=== PATIENT | female | born 1940 | race Caucasian/White ===

== ENCOUNTER 2020-07-28 02:36 | Inpatient (IN) | payer MEDICARE ==
[~2020-07-28] VITALS: Ht 152.4 cm; Wt 48.1 kg
[2020-07-28] MEDS ORDERED: BLOOD SUGAR DIAGNOSTIC 1 EACH STRIP IN ONE (04:30)
[2020-07-28] MEDS ORDERED: ACETAMINOPHEN 325 MG TABLET PO PRN (04:30)
[2020-07-28] MEDS ORDERED: MAGNESIUM HYDROXIDE 30 ML UDC PO PRN (04:30)
[2020-07-28] MEDS ORDERED: MAG HYDROX/AL HYDROX/SIMETH 30 ML UDC PO PRN (04:30)
[2020-07-28] MEDS ORDERED: LORAZEPAM 0.5 MG TABLET PO PRN (04:30)
[2020-07-28 05:09] VITALS: BP 152/93
--- NOTE | 2020-07-28 06:15 | NUR ---
GPS RN ADMITTING NOTE: ADMITTED AN 79 Y/O FEMALE TO THIS UNIT ON 07/28/20 @ 0400. PT IS ON 5150 HOLD FOR GRAVELY DISABLED. HOLD WAS PLACED ON 07/27/2020 @ 1214. PER HOLD, PT CALLED 911 BECAUSE PT IS UNWILLING TO PARTICIPATE IN SELF CARE, DISORGANIZED, PARANOID, HAS BEEN TALKING TO HERSELF, HAS NOT EATEN FOR THEE DAYS, HAS NOT BEEN DRINKING ANY FLUID AND IS UNABLE TO STATE A PLAN FOR HER OWN SAFETY. UPON FACE TO FACE EVALUATION PT PRESENTS A/O X1-2, HYPERVERBAL, PARANOID, RESTLESS, TALKATIVE, FLAT AFFECT, DISHEVELED, UNKEPT, DISORGANIZED AND DISORIENTED. SKIN ASSESSMENT DONE AND PICTURES PLACED IN CHART, MRSA BOTH NARES DONE. PT BELONGINGS INVENTORIED AND CONTRABAND PLACED IN PHARMACY BOX. PT REFUSED TO SIGN ADMISSION PAPERS. PT DENIES SI, AT THIS TIME. PT MEDICAL HX INCLUDE LEFT EYE BLINDNESS, CORNEAL TRANSPLANT, HTN, HYPERLIPIDEMIA, GLAUCOMA, AND CHRONIC PAIN DISORDER. PT WILL BE UNDER THE MEDICAL CARE OF DR. FIGUEROA AND PSYCHIATRIC CARE OF DR. TRIPLETT. PT ADVISED OF HER HOLD. PTS RIGHTS HANDBOOK GIVEN TO PT. BED IS IN LOCKED, LOWEST POSITION, BED ALARM ON. CARE PLAN STARTED, ALL PT CARE NEEDS MET AT THIS TIME. WILL CONTINUE TO MONITOR Q15MIN AND Q1 HR FOR SAFETY MOOD AND BEHAVIOR AND ENDORSE TO AM SHIFT.
[2020-07-28] MEDS ORDERED: BRIM5DRO11 OP (07:01)
[2020-07-28] MEDS ORDERED: NICO-676 TP (07:01)
[2020-07-28] MEDS ORDERED: LORA-259 PO (07:01)
[2020-07-28] MEDS ORDERED: OLAN5TAB3 PO (07:01)
[2020-07-28] MEDS ORDERED: PRED5DRO4 LEFTEYE (07:01)
[2020-07-28] MEDS ORDERED: IBUP-1953 PO (07:01)
[2020-07-28] MEDS ORDERED: IBUP-1957 PO (07:01)
[2020-07-28] MEDS ORDERED: MOXI3DRO EACHEYE (07:01)
[2020-07-28] MEDS ORDERED: MELA3TAB41 PO (07:01)
[2020-07-28 08:00] VITALS: BP 153/97
--- NOTE | 2020-07-28 11:00 | NUR ---
RN-CO: DR Jim VILLARREAL NOTIFIED TO RECONCILE HOME MEDICATIONS.
[2020-07-28] MEDS: LORAZEPAM 1 MG TABLET PO PRN (11:14)
[2020-07-28] MEDS ORDERED: BRIM5DRO EACHEYE (13:56)
[2020-07-28] MEDS ORDERED: IBUPROFEN 400 MG TABLET PO PRN (14:00)
[2020-07-28 16:00] VITALS: BP 133/88
[2020-07-28] MEDS ORDERED: COMBIGAN EYE LEFTEYE SCH (17:00)
[2020-07-28] MEDS ORDERED: MOXIFLOXACIN OPTH 3 ML BOTTLE EACHEYE SCH (17:00)
[2020-07-28] MEDS: prednisoLONE ACET 1% OPHT DROP 5 ML BOTTLE LEFTEYE SCH ×2 (17:24→20:13)
[2020-07-28] MEDS: MOXIFLOXACIN OPTH 3 ML BOTTLE LEFTEYE SCH ×2 (17:25→20:12)
[2020-07-28 21:00] VITALS: BP 159/89
[2020-07-28] MEDS: risperiDONE 0.25 MG TABLET PO SCH (22:48)
--- NOTE | 2020-07-29 05:09 | NUR ---
GPS RN NOTE: ALLERGIC REACTION & D/C MEDICATION AT 0445 PT WOKE UP AND I NOTICED SHE WAS HAVING AN ALLERGIC REACTION OF BOTH EYES. BOTH EYES WERE SWOLLEN, IRRITATED AND RED. PT C/O OF SHOULDER AND BACK PAIN WELL. INFORMED PODIATRIST ASSISTANT DR. FIGUEROA, @0503 DR ORDERED 25MG ORAL BENADRYL ONCE, AND TO STOP THE EYE DROP MEDICATION AND TO PASS IT ON TO UPCOMING SHIFT SO THAT THE PT CAN BE SEEN MY MEDICAL DR. WILL ADMIN MEDICATION, PASS IT ON TO MORNING SHIFT AND CONTINUE TO MONITOR Q15MIN FOR SAFETY AND BEHAVIOR
--- NOTE | 2020-07-29 05:19 | NUR ---
GPS RN NOTE: ALLERGIC REACTION PT HAD AN ALLERGIC REACTION IN BOTH EYES, SWOLLEN, IRRITATED, PT C/O OF PAIN REFUSED ANY PAIN MED BUT TOOK THE BENADRYL THE DR ORDERED AT 0518. WILL REASSESS AND CONTINUE TO MONITOR Q15MIN FOR SAFETY AND BEHAVIOR.
[2020-07-29] MEDS ORDERED: diphenhydrAMINE HCL ELIX 25 MG/10 ML UDC PO ONE (05:30)
--- NOTE | 2020-07-29 06:18 | NUR ---
GPS RN NOTE: ALLERGIC REACTION BENADRYL THAT WAS GIVEN AT @0518 HELPED RESOLVE THE ALLERGIC REACTION THE PT WAS HAVING, SWELLING, REDNESS AND PAIN WENT DOWN. WILL PASS IT ON TO MORNING SHIFT AND CONTINUE TO MONITOR Q15MIN FOR SAFETY AND BEHAVIOR.
[2020-07-29 08:00] VITALS: BP 144/78
[2020-07-29] MEDS: NICOTINE PATCH (14MG) 14 MG PATCH.TD24 TD SCH ×2 (08:42→08:46)
--- NOTE | 2020-07-29 08:46 | NUR ---
gps composite technician: notes pt refused nicotine patch, stated, "i don't smoke, i am not a smoker."
[2020-07-29 09:18] LABS: ALBUMIN 3.4 g/dL (3.4-5.0); BILIRUBIN,TOTAL 0.4 mg/dL (0.2-1.0); CALCIUM, SERUM 9.1 mg/dL (8.5-10.1); POTASSIUM 3.1 mmol/L (3.5-5.1); TOTAL PROTEIN, SERUM 6.7 g/dL (6.4-8.2)
[2020-07-29] MEDS: risperiDONE 0.25 MG TABLET PO SCH ×2 (10:24→22:14)
[2020-07-29] MEDS ORDERED: MOXIFLOXACIN OPTH 3 ML BOTTLE LEFTEYE SCH (10:30)
[2020-07-29] MEDS ORDERED: BRIMONIDINE TARTRATE OPHT SOLN 5 ML BOTTLE LEFTEYE SCH (11:00)
[2020-07-29] MEDS ORDERED: POTASSIUM CHLORIDE 20 MEQ POWDER PACKET PO ONE (11:00)
[2020-07-29] MEDS: MOXIFLOXACIN OPTH 3 ML BOTTLE LEFTEYE SCH ×3 (11:49→21:02)
[2020-07-29] MEDS: COMBIGAN EYE LEFTEYE SCH ×2 (11:49→16:17)
[2020-07-29] MEDS: prednisoLONE ACET 1% OPHT DROP 5 ML BOTTLE LEFTEYE SCH ×2 (11:55→16:19)
--- NOTE | 2020-07-29 12:40 | NUR ---
gps course instructor: notes report given to zuri (rn) for continuity of care. pt for discharge to [facility]. covid result is pending.
[2020-07-29] MEDS ORDERED: prednisoLONE ACET 1% OPHT DROP 5 ML BOTTLE LEFTEYE SCH (13:00)
[2020-07-29 16:00] VITALS: BP 120/71
[2020-07-29 20:06] VITALS: BP 130/90
[2020-07-29 22:15] VITALS: BP 128/82
[2020-07-30] MEDS: TEMAZEPAM 15 MG CAPSULE PO PRN (00:17)
--- NOTE | 2020-07-30 00:23 | NUR ---
RN NOTES : INSOMNIA PT. C/O UNABLE TO SLEEP , RESTORIL 15 MG PO PRN GIVEN , WILL CONTINUE TO MONITOR.
--- NOTE | 2020-07-30 06:48 | NUR ---
GPS RN NOTES: PT. RESTING IN HER ROOM, CALM NOTED AT THIS TIME . NO S/S OF DISTRESS NOTED . NO CHANGE OF CONDITION NOTED, ALL CARE NEEDS MET ANTICIPATED. WILL CONTINUE TO MONITOR FOR SAFETY BEHAVIOR, AND ENDORSE TO AM SHIFT FOR CONTINUITY OF CARE.
[2020-07-30 08:00] VITALS: BP 114/71
[2020-07-30] MEDS: MOXIFLOXACIN OPTH 3 ML BOTTLE LEFTEYE SCH ×4 (08:46→20:21)
[2020-07-30] MEDS: prednisoLONE ACET 1% OPHT DROP 5 ML BOTTLE LEFTEYE SCH ×2 (08:46→16:10)
[2020-07-30] MEDS: COMBIGAN EYE LEFTEYE SCH ×2 (08:47→16:10)
[2020-07-30] MEDS: NICOTINE PATCH (14MG) 14 MG PATCH.TD24 TD SCH (08:47)
[2020-07-30] MEDS: risperiDONE 0.25 MG TABLET PO SCH ×2 (10:23→21:20)
--- NOTE | 2020-07-30 10:27 | NUR ---
FAMILY CONTACT: NEERU contacted pts Jim ([phone]) to discuss collateral information , discharge and treatment planning. NEERU informed that pt remains paranoid, delusional, disorganized, and is refusing to shower and groom herself. became defensive and stated that he had just spoken with pt and she sounded, "fine and put together." denies previous psychiatric history or symptoms and states that pt has never displayed any symptoms of psychosis. did mention that last month pt began acting more "eccentric" than usual and stated that she began talking to herself and acting paranoid and disorganized. states that he tried calling the police for a psychiatric evaluation then hung up after pt yelled at him not to call. stated that it was too late and the police showed up and placed pt on a hold due to her acting bizarre. stated that he is a physician and that he has psychiatric training and states that he wishes for pt to be discharged soon as he is going on a trip next . requested to speak to MD regarding pts discharge date. Addendum: 07/30/20 at 1039 by GUSTAVO SIDDIQI wishes for pt to return home once stable.
--- NOTE | 2020-07-30 11:19 | NUR ---
INITIAL DISCHARGE PLAN: Per Jim ([phone]) he wishes for pt to return home [address] [place] [address] once stable for discharge. NEERU will help from a safe and proper discharge in collaboration with .
[2020-07-30 16:00] VITALS: BP 139/77
[2020-07-31] MEDS: LORAZEPAM 1 MG TABLET PO PRN (04:50)
--- NOTE | 2020-07-31 04:52 | NUR ---
RN NOTES: ANXIETY PT.NOTED VERY ANXIOUS , RESTLESS PARANOID ,GUARDED , NOT FOLLOWING ANY REDIRECTION ATIVAN 1 MG PO PRN GIVEN , WILL CONTINUE TO MONITOR.
[2020-07-31 08:00] VITALS: BP 129/74
[2020-07-31] MEDS: COMBIGAN EYE LEFTEYE SCH ×2 (09:03→16:29)
[2020-07-31] MEDS: NICOTINE PATCH (14MG) 14 MG PATCH.TD24 TD SCH (09:04)
[2020-07-31] MEDS: MOXIFLOXACIN OPTH 3 ML BOTTLE LEFTEYE SCH ×4 (09:04→21:14)
[2020-07-31] MEDS: risperiDONE 0.25 MG TABLET PO SCH ×2 (09:04→21:14)
[2020-07-31] MEDS: prednisoLONE ACET 1% OPHT DROP 5 ML BOTTLE LEFTEYE SCH ×2 (09:04→16:18)
[2020-07-31 16:00] VITALS: BP 159/81
--- NOTE | 2020-07-31 19:39 | NUR ---
GPS RN NOTES RECEIVED PATIENT IN ROOM AWAKE, ALERT AND ORIENTED X 2. CONFUSED. BREATHING EVEN AND UNLABORED ON ROOM AIR. SHOWS NO SIGNS OF ACUTE RESPIRATORY DISTRESS, NO ACUTE PAIN. PT IS COMPLIANT WITH MEDICATIONS. DENIES SI AND HI. SAFETY PRECAUTIONS IN PLACE. BED IN LOWEST POSITION, LOCKED, AND WILL CONTINUE TO MONITOR.
[2020-07-31 20:26] VITALS: BP 127/79
[2020-07-31] MEDS: TEMAZEPAM 15 MG CAPSULE PO PRN (22:26)
[2020-07-31] MEDS: risperiDONE 1 MG TABLET PO SCH (23:05)
--- NOTE | 2020-08-01 06:30 | NUR ---
GPS RN NOTES: PT. RESTING IN HER ROOM, CALM NOTED AT THIS TIME . NO S/S OF DISTRESS NOTED ,NO CHANGE OF CONDITION NOTED ,AND NO BEHAVIOR PROBLEMS NOTED, PT. NEEDS FREQUENTLY REDIRECTIONS ,ALL CARE NEEDS MET ANTICIPATED. WILL CONTINUE TO MONITOR FOR SAFETY BEHAVIOR, AND ENDORSE TO AM SHIFT FOR CONTINUITY OF CARE.
--- NOTE | 2020-08-01 07:41 | NUR ---
GPS RN NOTE RECEIVED PATIENT IN BED RESTING COMFORTABLY. PATIENT IN NO ACUTE DISTRESS. NO SOB NOTED. PATIENT BREATHING IS EVEN AND UNLABORED. PATIENT IS CALM AND COOPERATIVE AT THIS TIME. DENIES SI AND HI. SAFETY PRECAUTIONS IN PLACE. PATIENT BED IS LOCKED AND IN LOWEST POSITION. BED ALARM IS ON. WILL CONTINUE TO MONITOR.
[2020-08-01 08:14] VITALS: BP 147/90
[2020-08-01] MEDS: prednisoLONE ACET 1% OPHT DROP 5 ML BOTTLE LEFTEYE SCH ×2 (08:55→16:09)
[2020-08-01] MEDS: MOXIFLOXACIN OPTH 3 ML BOTTLE LEFTEYE SCH ×4 (08:56→21:14)
[2020-08-01] MEDS: COMBIGAN EYE LEFTEYE SCH ×2 (08:58→16:09)
[2020-08-01] MEDS: NICOTINE PATCH (14MG) 14 MG PATCH.TD24 TD SCH (09:00)
--- NOTE | 2020-08-01 09:05 | NUR ---
GPS RN NOTE PATIENT REFUSED NICOTINE PATCH THIS AM. EDUCATED RISKS VS BENEFITS 3X. PATIENT CONTINUED TO REFUSE.
[2020-08-01] MEDS: risperiDONE 1 MG TABLET PO SCH ×2 (11:32→22:56)
--- NOTE | 2020-08-01 14:08 | NUR ---
FAMILY CONTACT: NEERU received a call from pts Jim ([phone]) wanting to discuss pts discharge date. states that he has an important business trip next week and needs pt discharged by Wednesday. SW informed him that as of today pt continues to meet criteria for acute psychiatric hospitalization and informed him that pts antipsychotic was increased yesterday as pt continues to be paranoid, guarded, and evasive with disorganized thoughts. states that he feels pt has returned to her baseline. also stated that he is concerned about the antipsychotic as he read there are significant side effects. SW informed him to discuss any medication concerns with MD. NEERU transferred the call to the nurses station to leave a benny for MD for callback.
[2020-08-01] MEDS: ENSURE ENLIVE 237 ML LIQUID (VANILLA) PO SCH ×2 (14:30→16:09)
[2020-08-01 16:00] VITALS: BP 154/95
--- NOTE | 2020-08-01 18:45 | NUR ---
GPS RN NOTE PATIENT IN BED RESTING COMFORTABLY. PATIENT IN NO ACUTE DISTRESS. NO SOB NOTED. PATIENT BREATHING IS EVEN AND UNLABORED. PATIENT IS CALM AND COOPERATIVE AT THIS TIME. PATIENT NEEDING FREQUENT REDIRECTION. SAFETY PRECAUTIONS IN PLACE. EXPLAINED ALL DUE MEDS. PATIENT KEPT CLEAN, DRY, AND COMFORTABLE THROUGHOUT SHIFT. PATIENT BED IS LOCKED AND IN LOWEST POSITION. BED ALARM IS ON. WILL ENDORSE CARE TO PM SHIFT FOR KRISTIAN.
--- NOTE | 2020-08-01 19:30 | NUR ---
GPS RN NOTE, RECEIVED PATIENT AWAKE AND IN BED, NO S/S OR COMPLAINTS OF PAIN AT THIS TIME. PATIENT IS DISPLAYING NO S/S OF APPARENT DISTRESS AT THIS TIME. PATIENT BREATHING IS UNLABORED WITH EQUAL RISE AND FALL OF THE CHEST. PATIENT IS ALERT AND ORIENTED X 2 ON ROOM AIR WITH A SPO2 96%. PATIENT IS COMPLAINT WITH MEDICATIONS, CONFUSED AT TIMES, HYPERVERBAL, ISOLATIVE, AND COOPERATIVE. PATIENT DENIES SUICIDAL AND HOMICIDAL IDEATIONS AT THIS TIME. PATIENT ASSISTED WITH TURNING AND REPOSITIONING Q2HR AND PRN FOR COMFORT AND CIRCULATION. PATIENT HAS NO NEEDS AT THIS TIME. PATIENT EDUCATED ON THE USE OF THE CALL LEÓN. PATIENT BED SIDE RAILS UP X 2 FOR SAFETY. PATIENT BED IS LOCKED, LOW, WITH BED ALARM ON. WILL CONTINUE TO MONITOR THIS PATIENT Q15 MINUTES WITH THE HELP OF STAFF TO MAINTAIN SAFETY.
[2020-08-01 20:14] VITALS: BP 118/90
--- NOTE | 2020-08-01 22:55 | NUR ---
GPS RN NOTE, PATIENT REFUSED RISPERDAL 0.5MG PO Q12HR. OFFERED RISPERDAL THREE TIMES BUT PATIENT REFUSED STATING," I DON'T KNOW WHAT THAT IS I WON'T TAKE IT ". EDUCATED PATIENT ON THE RISKS AND BENEFITS OF TAKING AND REUSING RISPERDAL. WILL CONTINUE TO MONITOR THIS PATIENT.
[2020-08-02 08:00] VITALS: BP 100/67
[2020-08-02] MEDS: NICOTINE PATCH (14MG) 14 MG PATCH.TD24 TD SCH (09:00)
[2020-08-02] MEDS: ENSURE ENLIVE 237 ML LIQUID (VANILLA) PO SCH ×2 (09:04→17:44)
[2020-08-02] MEDS: prednisoLONE ACET 1% OPHT DROP 5 ML BOTTLE LEFTEYE SCH ×2 (09:05→17:45)
[2020-08-02] MEDS: COMBIGAN EYE LEFTEYE SCH ×2 (09:06→17:45)
[2020-08-02] MEDS: MOXIFLOXACIN OPTH 3 ML BOTTLE LEFTEYE SCH ×4 (09:06→21:43)
--- NOTE | 2020-08-02 09:40 | NUR ---
PC HEARING NOTIFICATION: NEERU contacted pts Jim ([phone]) and left a voicemail informing him pt is scheduled for a Probable Cause Hearing on this day.
[2020-08-02] MEDS: risperiDONE 1 MG TABLET PO SCH ×2 (11:00→23:00)
--- NOTE | 2020-08-02 14:31 | NUR ---
FAMILY CONTACT: SW received a call from pts Jim ([phone]) wanting to discuss pts discharge date. states that he wishes for pt to be discharged on Wednesday. SW informed him that pts 14 day hold was upheld and informed him that currently pt is refusing to take her antipsychotic medication. SW explained that as of today pt is not stable for discharge and will most likely not be discharging by Wednesday. SW educated on pts course of treatment and stated that if pt continues to refuse medication the MD may file for a medication capacity hearing. understood and states he will see how pt does over the weekend.
[2020-08-02 16:00] VITALS: BP 152/95
[2020-08-02 19:37] VITALS: BP 139/99
--- NOTE | 2020-08-02 23:04 | NUR ---
GPS RN NOTE: MEDICATION REFUSAL PATIENT REFUSED RISPERDAL 0.5MG PO Q12HR. OFFERED RISPERDAL THREE TIMES BUT PATIENT REFUSED STATING," I DON'T KNOW WHAT THAT IS". EDUCATED PATIENT ON THE RISKS AND BENEFITS OF TAKING AND REUSING RISPERDAL. WILL CONTINUE TO MONITOR THIS PATIENT FOR SAFETY AND BEHAVIOR
--- NOTE | 2020-08-03 06:53 | NUR ---
GPS RN NOTE: CONSTIPATION PT. C/O OF CONSTIPATION. ADMINISTERED MOM 30 ML PRN ORDERED. WILL CONTINUE TO MONITOR FOR SAFETY AND BEHAVIOR.
[2020-08-03 08:00] VITALS: BP 133/76
[2020-08-03] MEDS: NICOTINE PATCH (14MG) 14 MG PATCH.TD24 TD SCH ×2 (08:18→08:25)
[2020-08-03] MEDS: ENSURE ENLIVE 237 ML LIQUID (VANILLA) PO SCH ×2 (08:19→16:28)
[2020-08-03] MEDS: prednisoLONE ACET 1% OPHT DROP 5 ML BOTTLE LEFTEYE SCH ×2 (08:19→10:36)
[2020-08-03] MEDS: MOXIFLOXACIN OPTH 3 ML BOTTLE LEFTEYE SCH ×4 (10:36→21:28)
[2020-08-03] MEDS: COMBIGAN EYE LEFTEYE SCH ×2 (10:37→16:28)
[2020-08-03] MEDS: risperiDONE 1 MG TABLET PO SCH ×2 (11:35→22:42)
[2020-08-03 16:36] VITALS: BP 136/60
[2020-08-03 20:15] VITALS: BP 159/82
[2020-08-03] MEDS: LORAZEPAM 1 MG TABLET PO PRN (20:47)
--- NOTE | 2020-08-03 20:47 | NUR ---
GPS RN NOTE, PATIENT HAS A COMPLAINT OF FEELING ANXIOUS AND IS REQUESTING ATIVAN AT THIS TIME. PATIENT VITAL SIGNS ARE STABLE. GAVE ATIVAN 1 MG PO Q6 PRN ORDERED. WILL REASSESS FOR ANXIETY AND I WILL CONTINUE TO MONITOR THIS PATIENT WITH THE HELP OF STAFF.
[2020-08-04 08:00] VITALS: BP 117/72
[2020-08-04] MEDS: ENSURE ENLIVE 237 ML LIQUID (VANILLA) PO SCH ×2 (08:49→16:59)
[2020-08-04] MEDS: NICOTINE PATCH (14MG) 14 MG PATCH.TD24 TD SCH (08:49)
[2020-08-04] MEDS: prednisoLONE ACET 1% OPHT DROP 5 ML BOTTLE LEFTEYE SCH ×2 (08:49→16:58)
[2020-08-04] MEDS: COMBIGAN EYE LEFTEYE SCH ×2 (08:50→16:58)
[2020-08-04] MEDS: MOXIFLOXACIN OPTH 3 ML BOTTLE LEFTEYE SCH ×4 (08:50→21:35)
[2020-08-04] MEDS: risperiDONE 1 MG TABLET PO SCH ×2 (12:34→23:00)
[2020-08-04] MEDS ORDERED: POLYVINYL ALCOHOL 15 ML BOTTLE LEFTEYE PRN (14:00)
[2020-08-04 16:00] VITALS: BP 156/91
[2020-08-04 19:50] VITALS: BP 141/74
[2020-08-04 20:29] VITALS: BP 141/74
--- NOTE | 2020-08-04 23:00 | NUR ---
GPN NURSE: refusing HS Risperdal 0.5mg , offered X2. I called Patients"s cell po. and asked him id he would bring another bottle of her left eye ATB GTTS. He stated he has no more the MD at the hospital will have to order and get from your pharmacy. Will endorse to the day shift to ask the MD when he makes rounds.
--- NOTE | 2020-08-05 05:04 | NUR ---
CLOSING NOTES: Slept 8 hours this night. She ambulates the corridor and steady on her feet. Left eye orbital area red and swollen. Noted the eye gtts MOXIFLOXACIN is empty called the on his cell po [phone] and he told me he is 100 miles away and that he has no more eye gttts for her and that I would need to get them from our pharmacy. She is calm and cooperative.
[2020-08-05 08:00] VITALS: BP 148/65
[2020-08-05] MEDS: NICOTINE PATCH (14MG) 14 MG PATCH.TD24 TD SCH (08:51)
[2020-08-05] MEDS: COMBIGAN EYE LEFTEYE SCH ×2 (09:00→17:00)
[2020-08-05] MEDS: MOXIFLOXACIN OPTH 3 ML BOTTLE LEFTEYE SCH ×3 (09:00→17:00)
[2020-08-05] MEDS: prednisoLONE ACET 1% OPHT DROP 5 ML BOTTLE LEFTEYE SCH ×2 (09:06→17:44)
[2020-08-05] MEDS: ENSURE ENLIVE 237 ML LIQUID (VANILLA) PO SCH ×2 (09:07→17:45)
[2020-08-05] MEDS: risperiDONE 1 MG TABLET PO SCH ×2 (11:16→22:56)
--- NOTE | 2020-08-05 15:54 | NUR ---
INDIVIDUAL INTERVENTION: SW met with pt at bedside to discuss her medication compliance. Pt states that she does not need medication and that she does not need to be here and wants to be discharged home. SW informed pt that she is not consistent with taking her medication and encouraged pt to take her medication everyday so that MD can discharge her once stable. Pt agreed and stated she will try to take her medication daily.
[2020-08-05 16:00] VITALS: BP 136/88
--- NOTE | 2020-08-05 16:51 | NUR ---
RN NOTE: PAIN PT C/O 4/10 HEADACHE. REQUESTING MOTRIN. MOTRIN 400MG PO PRN ADMINISTERED.
[2020-08-05] MEDS: TIMOLOL 0.5% SOLN OPHTH 5 ML BOTTLE LEFTEYE SCH (18:53)
[2020-08-05] MEDS: BRIMONIDINE TARTRATE OPHT SOLN 5 ML BOTTLE OP SCH (18:54)
[2020-08-05 19:42] VITALS: BP 152/89
[2020-08-05] MEDS: OFLOXACIN 0.3% OPHTH 5 ML BOTTLE LEFTEYE SCH (21:16)
--- NOTE | 2020-08-06 06:03 | NUR ---
GPS RN NOTES: PT. RESTING IN HER ROOM, CALM NOTED AT THIS TIME . NO S/S OF DISTRESS NOTED . PT. CALM COOPERTIVE,NO CHANGE OF CONDITION NOTED ,AND NO BEHAVIOR PROBLEMS NOTED, ALL CARE NEEDS MET ANTICIPATED. WILL CONTINUE TO MONITOR FOR SAFETY BEHAVIOR, AND ENDORSE TO AM SHIFT FOR CONTINUITY OF CARE.
[2020-08-06 08:00] VITALS: BP 143/92
[2020-08-06] MEDS: NICOTINE PATCH (14MG) 14 MG PATCH.TD24 TD SCH (08:35)
[2020-08-06] MEDS: ENSURE ENLIVE 237 ML LIQUID (VANILLA) PO SCH ×2 (08:35→16:53)
[2020-08-06] MEDS: TIMOLOL 0.5% SOLN OPHTH 5 ML BOTTLE LEFTEYE SCH ×2 (09:17→16:51)
[2020-08-06] MEDS: BRIMONIDINE TARTRATE OPHT SOLN 5 ML BOTTLE OP SCH ×2 (09:18→16:52)
[2020-08-06] MEDS: OFLOXACIN 0.3% OPHTH 5 ML BOTTLE LEFTEYE SCH ×4 (09:19→21:18)
[2020-08-06] MEDS: prednisoLONE ACET 1% OPHT DROP 5 ML BOTTLE LEFTEYE SCH ×2 (09:27→16:52)
[2020-08-06] MEDS: risperiDONE 1 MG TABLET PO SCH ×2 (10:27→23:09)
--- NOTE | 2020-08-06 10:28 | NUR ---
RN NOTE: PAIN PT C/O 01/15 HEADACHE. MEDICATED WITH TYLENOL 650MG PO PRN.
--- NOTE | 2020-08-06 10:45 | NUR ---
FAMILY CONTACT: SW contacted pts Jim ([phone]) to inform him pt will be discharged tomorrow Wednesday08/07/20. states he will pick pt up at 11:00am.
--- NOTE | 2020-08-06 10:52 | NUR ---
NEERU COORDINATION OF CARE: SW contacted [facility] [address] [place], [place] [address]io [address], [facility] [address] ([phone]) to schedule a follow up appointment. Pt has an appointment scheduled for 08/14/20 at 10:00am.
--- NOTE | 2020-08-06 10:58 | NUR ---
FAMILY CONTACT: SW contacted pts Jim ([phone]) to inform him pt has a mental health follow up appointment with [facility] [address] [place] [address] [address], [facility] [address] ([phone]) on 08/14/20 at 10:00am.
[2020-08-06 16:00] VITALS: BP 127/75
[2020-08-06 19:33] VITALS: BP 159/90
[2020-08-06] MEDS ORDERED: risperiDONE 1 MG TABLET PO SCH (23:30)
[2020-08-06] MEDS: LORAZEPAM 1 MG TABLET PO PRN (23:38)
--- NOTE | 2020-08-07 06:40 | NUR ---
GPS RN CLOSING NOTES: PT LAYING ON BED AWAKE, ALERT AND ORIENTED X2. PT SLEPT 5HRS THIS SHIFT. NO S/S OF DISTRESS. RESPIRATION EVEN AND UNLABORED WITH EQUAL RISE AND FALL OF THE CHEST. ALL PT CARE NEEDS MET ANTICIPATED. WILL CONTINUE TO MONITOR AND ENDORSE TO AM SHIFT.
[2020-08-07 08:00] VITALS: BP 110/67
--- NOTE | 2020-08-07 08:37 | NUR ---
DISCHARGE NOTE: Pt will be discharged at 11:00am via private transportation [place] [address] [place] [address]. Pts Jim ([phone]) will crop picker pt and transport home. Pts mood is euthymic with congruent affect. Pt is alert and oriented x3, to self, place, and time. Pts insight and judgement is impaired. Pt is ambulatory and appropriately dressed and groomed. Pt will follow up with [facility] [address] [place] [address] [address], [facility] [address] ([phone]) on Wednesday08/14/20 at 10:00am. Pt will also follow up with Registered Nurse Post Partum: Dr. Pratik Buckley Address: [address] [place] [address] on Wednesday08/09/20 at 3:00pm. The multidisciplinary exit care form was done, printed, signed, and given to the patient.
[2020-08-07] MEDS ORDERED: risperiDONE 1 MG TABLET PO SCH (09:00)
[2020-08-07] MEDS: OFLOXACIN 0.3% OPHTH 5 ML BOTTLE LEFTEYE SCH (10:24)
[2020-08-07] MEDS: prednisoLONE ACET 1% OPHT DROP 5 ML BOTTLE LEFTEYE SCH (10:24)
[2020-08-07] MEDS: BRIMONIDINE TARTRATE OPHT SOLN 5 ML BOTTLE OP SCH (10:25)
[2020-08-07] MEDS: TIMOLOL 0.5% SOLN OPHTH 5 ML BOTTLE LEFTEYE SCH (10:25)
[2020-08-07] MEDS: NICOTINE PATCH (14MG) 14 MG PATCH.TD24 TD SCH (10:26)
--- NOTE | 2020-08-07 10:30 | NUR ---
REFUSED DISCHARGE PHOTOS.
[2020-08-07] MEDS: ENSURE ENLIVE 237 ML LIQUID (VANILLA) PO SCH (10:36)
--- NOTE | 2020-08-07 11:05 | NUR ---
pt. discharged to home.med compliant.vs stable.denies suicidal,homicidal ideation.all papers signed.given belongings.taken via w/c to lobby accompanied by switch operator.has all rxs.spouse to transport pt. home.
== END 2020-08-07 11:15 | disposition home or self-care (01) | DRG 885 ==
LOC: GPS 03:49
PROVIDERS: ADMIT Psychiatry & Neurology Psychiatry; ATTEND Internal Medicine
DX: F29 Unspecified psychosis not due to a substance or known physiological condition (principal); F41.9 Anxiety disorder, unspecified; F20.0 Paranoid schizophrenia; F39 Unspecified mood [affective] disorder; E78.5 Hyperlipidemia, unspecified; H40.9 Unspecified glaucoma; G89.29 Other chronic pain; Z98.890 Other specified postprocedural states; Z90.10 Acquired absence of unspecified breast and nipple; Z85.3 Personal history of malignant neoplasm of breast; E87.6 Hypokalemia; H18.429 Band keratopathy, unspecified eye
CPT/HCPCS: 36415; 80053-TC; 80061-TC; 82962-TC; 87081-TC; 97116-TC; 97530-TC; Q0163